=== PATIENT | male | born 1970 | race Caucasian/White ===

== ENCOUNTER 2018-03-14 00:19 | Observation (INO) | payer OTHER ==
[2018-03-14 00:59] LABS: Absolute Lymphocytes (CBC) 2.6 K/uL (0.7-4.9); Absolute Monocytes 0.9 K/uL (0.1-1.3); Absolute Neutrophil 4.1 K/uL (1.8-8.0); Basophils % 0.7 % (0-1.3); Hematocrit 40.2 % (39.6-49.0); Lymphocytes % 32.5 % (15.3-44.8); MCH 33.7 pg (27.0-35.0); MCV 94.2 fL (80-100); MPV 7.5 fL (7.6-11.3); Monocytes % 11.3 % (3.3-12.3); RBC Red Blood Cell Count 4.26 M/uL (4.33-5.43)
[2018-03-14 01:04] LABS: Protime INR 1.07
[2018-03-14] MEDS ORDERED: FENTANYL CITR 100 MCG/2 ML ONE (01:07)
[2018-03-14] MEDS ORDERED: NA CHLORIDE 0.9% 1,000 ML ONE (01:07)
[2018-03-14 01:16] LABS: ALT/SGPT 37 U/L (12-78); AST/SGOT 24 U/L (15-37); Albumin 3.6 g/dL (3.4-5.0); Alkaline Phosphatase 52 U/L (45-117); BUN Blood Urea Nitrogen 16 mg/dL (7-18); Bicarbonate 26 mmol/L (21-32); Bilirubin Direct < 0.1 mg/dL (0-0.2); Bilirubin Total 0.3 mg/dL (0.2-1.0); Glucose Level 123 mg/dL (74-106); Magnesium 1.9 mg/dL (1.8-2.4); NT PRO-BNP 46 pg/mL (<125); Potassium 3.5 mmol/L (3.5-5.1); Sodium Level 142 mmol/L (136-145); Troponin (Emerg Dept Use Only) < 0.02 ng/mL (0.0-0.045)
--- NOTE | 2018-03-14 02:21 | ER ---
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 Transition of care: patient was not received from another setting of care. Onset of symptoms was March 14, 2018 at 00:00. Risk Assessment: Do you want to hurt yourself or someone else? Patient reports no desire to harm self or others. Initial Sepsis Screen: Does the patient meet any 2 criteria? No. Patient's initial sepsis screen is negative. Does the patient have a suspected source of infection? No. Patient's initial sepsis screen is negative. Care prior to arrival: None. 00:30 Method Of Arrival: Wheelchair lp1 00:30 Acuity: MICHELA 2 lp1 Historical: - Allergies: 00:34 Morphine; lp1 00:34 Neurontin; lp1 - Home Meds: 00:34 aspirin 325 mg Oral TbEC 1 tab once daily [Active]; lisinopril 5 mg Oral tab 1 tab lp1 twice a day [Active]; metoprolol tartrate 25 mg Oral tab 1 tab once daily [Active]; pantoprazole 20 mg Oral TbEC once daily [Active]; Plavix 75 mg Oral tab 1 tab once daily [Active]; Lisinopril Oral [Active]; atorvastatin 40 mg oral tab nightly [Active]; - PMHx: 00:34 Depression; Hyperlipidemia; Hypertension; VA x6; GERD; lp1 - PSHx: 00:34 Cardiac stents x4; Cholecystectomy; Appendectomy; Hernia repair; lp1 - Immunization history:: Adult Immunizations up to date. - Social history:: Smoking status: Patient uses tobacco products, smokes one-half pack cigarettes per day. - Ebola Screening: : No symptoms or risks identified at this time. Screenin:35 Abuse screen: Denies threats or abuse. Denies injuries from another. Nutritional lp1 screening: No deficits noted. Tuberculosis screening: No symptoms or risk factors identified. Fall Risk None identified. Assessment: 00:47 General: Appears in no apparent distress. Behavior is calm, cooperative. Pain: Pain ak1 does not radiate. Pain began 1 hour ago. Neuro: No deficits noted. Cardiovascular: Reports chest pain, diaphoresis, nausea, Rhythm is regular. Respiratory: No deficits noted. GI: No signs and/or symptoms were reported involving the gastrointestinal system. : No signs and/or symptoms were reported regarding the genitourinary system. EENT: No signs and/or symptoms were reported regarding the EENT system. Derm: Skin is intact, Skin is dry, Skin temperature is warm. Musculoskeletal: No signs and/or symptoms reported regarding the musculoskeletal system. 01:29 Reassessment: Patient appears in no apparent distress at this time. pt c/o increased ak1 pain, ERP ordered more pain medication and CT. pt informed of new orders. family at bedside. pt resp even and unlabored. will continue to monitor. 01:40 Reassessment: pt going to CT. ak1 02:55 Reassessment: Patient appears in no apparent distress at this time. No changes from ak1 previously documented assessment. Patient states feeling better. Vital Signs: 00:34 BP 115 / 75; Pulse 80; Resp 20; Temp 97.6(O); Pulse Ox 99% on R/A; Weight 122.47 kg; lp1 Height 5 ft. 10 in. (177.80 cm); Pain 8/10; 00:49 BP 110 / 75 LA Sitting (auto/lg); Pulse 71; ak1 00:56 BP 107 / 53 RA Sitting (auto/lg); Pulse 84; ak1 01:30 BP 103 / 62; Pulse 68; Resp 18; Pulse Ox 98% on R/A; ak1 02:56 BP 109 / 65; Pulse 68; Resp 16; Temp 98; Pulse Ox 99% on R/A; ak1 00:34 Body Mass Index 38.74 (122.47 kg, 177.80 cm) lp1 ED Course: 00:21 Patient arrived in ED. es 00:22 Brandyn Mi MD is Attending Physician. rn 00:28 Irving Guallpa PA is PHCP. cp 00:31 Triage completed. lp1 00:34 Arm band placed on left wrist. lp1 00:34 EKG done, by ED staff, reviewed by Brandyn Mi MD. Patient maintains SpO2 saturation lp1 greater than 95% on room air. 00:35 Patient has correct armband on for positive identification. Bed in low position. lp1 court monitor on. Pulse ox on. NIBP on. 00:46 Valeria Ruiz RN is Primary Nurse. ak1 00:46 Initial lab(s) drawn, by ny, sent to lab. Inserted saline lock: 22 gauge in left hand, ak1 using aseptic technique. Blood collected. Inserted saline lock: 20 gauge in right forearm, using aseptic technique. ,using aseptic technique. placed by Don DEL REAL. 00:47 No provider procedures requiring assistance completed. ak1 00:54 X-ray completed. Portable x-ray completed in exam room. Patient tolerated procedure kw well. 00:55 XRAY Chest (1 view) In Process Unspecified. EDMS 01:[address] via stretcher. kw1 01:58 Inserted saline lock: 20 gauge in left antecubital area, using aseptic technique. ao 02:11 CT Chest Angio In Process Unspecified. EDMS 02:11 Radiology exam delayed due to IV insertion attempt and/or patient not having kw1 appropriate IV at this time. 02:11 CT completed. Patient tolerated procedure well. Patient moved back from CT. kw1 02:20 Radha Kinney MD is Hospitalizing Provider. cp 02:54 Patient admitted, IV remains in place. ak1 02:54 20g Right forearm IV DC'd due to pain per pt. ak1 Administered Medications: 01:00 Drug: NS 0.9% 500 ml Route: IV; Rate: bolus; Site: left hand; ak1 01:40 Follow up: IV Status: Completed infusion ak1 01:00 Drug: fentaNYL (PF) 25 mcg Route: IVP; Site: left hand; ak1 01:21 Follow up: Response: No adverse reaction ak1 01:29 Drug: fentaNYL (PF) 25 mcg Route: IVP; Site: left hand; ak1 01:39 Follow up: Response: No adverse reaction ak1 02:42 Drug: NS 0.9% 1000 ml Route: IV; Rate: 100 ml/hr; Site: left hand; ak1 02:42 Follow up: IV Status: Infusion continued upon admission ak1 Outcome: 02:20 Decision to Hospitalize by Provider. cp 02:54 Condition: stable ak1 02:54 Instructed on the need for admit. 03:34 Admitted to Tele accompanied by tech, family with patient, via wheelchair, room 210, ak1 with chart, Report called to Maria Elena 03:45 Patient left the ED. ak1 Signatures: Dispatcher [employer] Annalisa Salamanca Roman, MD MD rn Whitley, Kimberlee kw Pena, Laura RN RN lp1 Valeria Ruiz RN RN ak1 Irving Guallpa, Caleb Sandoval cp, RN RN Brittany Vazquez kw1
--- NOTE | 2018-03-14 02:21 | EDPHYS ---
Physician Documentation [facility] Name: Raad Merlos Age: 47 yrs Sex: Male : 1970 Arrival Date: 03/14/2018 Time: 00:21 Bed 4 Private MD: ED Physician Brandyn Mi HPI: 03/14 00:40 This 47 yrs old Male presents to ER via Wheelchair with complaints of Chest cp Pain. 00:40 The patient or guardian reports chest pain that is located primarily in the anterior cp chest wall. Onset: 1 hour(s) ago. The pain does not radiate. The chest pain is described as similar to previous "heart attack pain". Duration: The patient or guardian reports a single episode, that is still ongoing. Historical: - Allergies: 00:34 Morphine; lp1 00:34 Neurontin; lp1 - Home Meds: 00:34 aspirin 325 mg Oral TbEC 1 tab once daily [Active]; lisinopril 5 mg Oral tab 1 tab lp1 twice a day [Active]; metoprolol tartrate 25 mg Oral tab 1 tab once daily [Active]; pantoprazole 20 mg Oral TbEC once daily [Active]; Plavix 75 mg Oral tab 1 tab once daily [Active]; Lisinopril Oral [Active]; atorvastatin 40 mg oral tab nightly [Active]; - PMHx: 00:34 Depression; Hyperlipidemia; Hypertension; [place] x6; GERD; lp1 - PSHx: 00:34 Cardiac stents x4; Cholecystectomy; Appendectomy; Hernia repair; lp1 - Immunization history:: Adult Immunizations up to date. - Social history:: Smoking status: Patient uses tobacco products, smokes one-half pack cigarettes per day. - Ebola Screening: : No symptoms or risks identified at this time. ROS: 00:45 Constitutional: Negative for body aches, chills, fever, poor PO intake. cp 00:45 Eyes: Negative for injury, pain, redness, and discharge. cp Exam: 00:30 ECG was reviewed by the Attending Physician. cp 00:48 Constitutional: The patient appears in no acute distress, alert, awake, cp non-diaphoretic, non-toxic, well developed, well nourished, uncomfortable. 00:48 Head/Face: Normocephalic, atraumatic. Eyes: Pupils equal round and reactive to light, cp extra-ocular motions intact. Lids and lashes normal. Conjunctiva and sclera are non-icteric and not injected. Cornea within normal limits. Periorbital areas with no swelling, redness, or edema. ENT: Nares patent. No nasal discharge, no septal abnormalities noted. Tympanic membranes are normal and external auditory canals are clear. Oropharynx with no redness, swelling, or masses, exudates, or evidence of obstruction, uvula midline. Mucous membranes moist. Neck: Trachea midline, no thyromegaly or masses palpated, and no cervical lymphadenopathy. Supple, full range of motion without nuchal rigidity, or vertebral point tenderness. No Meningismus. Chest/axilla: Normal chest wall appearance and motion. Nontender with no deformity. No lesions are appreciated. 00:48 Cardiovascular: Rate: normal, Rhythm: regular, Pulses: Pulses are 2+ in right radial artery and left radial artery. Edema: is not appreciated, JVD: is not appreciated. 00:48 Respiratory: the patient does not display signs of respiratory distress, Respirations: normal, no use of accessory muscles, no retractions, no splinting, no tachypnea, labored breathing, is not present, Breath sounds: are clear throughout, no decreased breath sounds, no stridor, no wheezing. 00:48 Abdomen/GI: Inspection: obese Bowel sounds: active, all quadrants, Palpation: abdomen is soft and non-tender, in all quadrants. 00:48 Skin: cellulitis, is not appreciated, no rash present. 00:48 Neuro: Orientation: to person, place \\T\\ time. Mentation: lucid, able to follow commands, Cerebellar function: is grossly normal, Motor: moves all fours, strength is normal, Sensation: no obvious gross deficits. Vital Signs: 00:34 BP 115 / 75; Pulse 80; Resp 20; Temp 97.6(O); Pulse Ox 99% on R/A; Weight 122.47 kg; lp1 Height 5 ft. 10 in. (177.80 cm); Pain 8/10; 00:49 BP 110 / 75 LA Sitting (auto/lg); Pulse 71; ak1 00:56 BP 107 / 53 RA Sitting (auto/lg); Pulse 84; ak1 01:30 BP 103 / 62; Pulse 68; Resp 18; Pulse Ox 98% on R/A; ak1 02:56 BP 109 / 65; Pulse 68; Resp 16; Temp 98; Pulse Ox 99% on R/A; ak1 00:34 Body Mass Index 38.74 (122.47 kg, 177.80 cm) lp1 MDM: 00:22 Patient medically screened. rn 01:24 Data reviewed: vital signs, nurses notes, lab test result(s), EKG, radiologic studies, cp plain films, and as a result, I will admit patient. Physician consultation: Radha Kinney MD was called at 01:24, was contacted at 01:24, regarding admission, to the telemetry unit. patient's condition. 03/14 00:29 Order name: Basic Metabolic Panel; Complete Time: 01:18 cp 03/14 01:18 Interpretation: Normal except: CL 110; GLUC 123; GFR 71; CA 8.2. cp 03/14 00:29 Order name: CBC with Diff; Complete Time: 01:18 cp 03/14 01:18 Interpretation: Normal except: RBC 4.26; MPV 7.5. cp 03/14 00:29 Order name: LFT's; Complete Time: 01:18 cp 03/14 00:29 Order name: Magnesium; Complete Time: 01:18 cp 03/14 00:29 Order name: NT PRO-BNP; Complete Time: 01:18 cp 03/14 00:29 Order name: PT-INR; Complete Time: 01:18 cp 03/14 00:29 Order name: Troponin (emerg Dept Use Only); Complete Time: 01:18 cp 03/14 01:19 Interpretation: Within normal limits: TROPED < 0.02. 03/14 00:29 Order name: XRAY Chest (1 view) 03/14 01:23 Order name: CT Chest Angio 03/14 02:47 Order name: Urine Dipstick--Ancillary (enter results) 2 03/14 00:29 Order name: EKG; Complete Time: 00:30 cp 03/14 00:29 Order name: Cardiac monitoring; Complete Time: 00:48 cp 03/14 00:29 Order name: EKG - Nurse/Tech; Complete Time: 00:49 cp 03/14 00:29 Order name: IV Saline Lock; Complete Time: 00:49 cp 03/14 00:29 Order name: Labs collected and sent; Complete Time: 00:49 cp 03/14 00:29 Order name: O2 Per Protocol; Complete Time: 00:49 cp 03/14 00:29 Order name: O2 Sat Monitoring; Complete Time: 00:49 cp 03/14 00:29 Order name: Blood Pressure Recheck: bilateral upper extremities; Complete Time: 00:56 cp 03/14 02:24 Order name: CONS Physician Consult EDMS EC:30 Rate is 77 beats/min. Rhythm is regular. SC interval is normal. QRS interval is normal. cp QT interval is normal. T waves are Inverted in lead aVL. Interpreted by me. Reviewed by me. Administered Medications: 01:00 Drug: NS 0.9% 500 ml Route: IV; Rate: bolus; Site: left hand; ak1 01:40 Follow up: IV Status: Completed infusion ak1 01:00 Drug: fentaNYL (PF) 25 mcg Route: IVP; Site: left hand; ak1 01:21 Follow up: Response: No adverse reaction ak1 01:29 Drug: fentaNYL (PF) 25 mcg Route: IVP; Site: left hand; ak1 01:39 Follow up: Response: No adverse reaction ak1 02:42 Drug: NS 0.9% 1000 ml Route: IV; Rate: 100 ml/hr; Site: left hand; ak1 02:42 Follow up: IV Status: Infusion continued upon admission ak1 Disposition: 06:57 Co-signature as Attending Physician, Brandyn Mi MD. rn Disposition: 03/14/18 02:20 Hospitalization ordered by Radha Kinney for Observation. Preliminary diagnosis is Chest pain, unspecified. - Bed requested for Telemetry/MedSurg (observation). - Status is Observation. ak1 - Condition is Stable. - Problem is new. - Symptoms have improved. UTI on Admission? No Signatures: Dispatcher [employer] EDMS Brittany Greenwood RN RN kl Nieto, Roman, MD MD rn Pena, Laura, RN RN lp1 Valeria Ruiz RN RN ak1 Irving Guallpa PA PA cp Corrections: (The following items were deleted from the chart) 01:18 01:18 Normal except: CL 110; GLUC 123; GFR 71. cp cp 03:19 02:20 Hospitalization Ordered by Radha Kinney MD for Observation. Preliminary kl diagnosis is Chest pain, unspecified. Bed requested for Telemetry/MedSurg (observation). Status is Observation. Condition is Stable. Problem is new. Symptoms have improved. UTI on Admission? No. cp 03:21 03:19 03/14/2018 02:20 Hospitalization Ordered by Radha Kinney MD for Observation. kl Preliminary diagnosis is Chest pain, unspecified. Bed requested for Telemetry/MedSurg (observation). Status is Observation. Condition is Stable. Problem is new. Symptoms have improved. UTI on Admission? No. kl 03:45 03:21 03/14/2018 02:20 Hospitalization Ordered by Radha Kinney MD for Observation. ak1 Preliminary diagnosis is Chest pain, unspecified. Bed requested for Telemetry/MedSurg (observation). Status is Observation. Condition is Stable. Problem is new. Symptoms have improved. UTI on Admission? No. kl
[2018-03-14] MEDS ORDERED: KETOROLAC 30 MG/ML INJ IV PRN (02:31)
--- NOTE | 2018-03-14 02:40 | P.HP ---
Certification for Inpatient Patient admitted to: Observation With expected LOS: <2 Midnights Practitioner: I am a practitioner with admitting privileges, knowledge of patient current condition, hospital course, and medical plan of care. Services: Services provided to patient in accordance with Admission requirements found in Title 42 Section 412.3 of the Code of Federal Regulations Patient History Date of Service: 03/14/18 Reason for admission: Chest pain History of Present Illness: Mr. Merlos is a 47-year-old male with history of dyslipidemia, obesity, tobacco abuse, Coronary artery disease, he has had several OR, with previous catheterization and stenting in the LAD posterior branch of RCA. The patient was admitted last time in 09/05 due to unstable angina, he had a new cardiac catheterization showing patent stents without significant stenosis in the rest of the arteries. At this time, the patient present in ER complaining of typical chest pain starting 1 hr prior to arrive. He described the pressure like, located substernally, radiated to the back, associated with profuse diaphoresis, shortness of breath and nausea. He took nitro sublingual without relief. In ER lab work shows normal troponin I level, EKG without ST-T acute abnormality. CT a chest shows no sign of PE, awaiting formal radiologist report. Allergies gabapentin Allergy (Verified 09/19/14 15:39) UNKNOWN morphine Allergy (Verified 09/19/14 15:39) UNKNOWN Home medications list reviewed: Yes Home Medications: Aspirin [Ecotrin] 325 mg PO DAILY 03/06/13 Lisinopril [Prinivil*] 5 mg PO BID 03/06/13 Metoprolol Tartrate [Lopressor*] 25 mg PO BID 03/06/13 Fluoxetine HCl [Prozac] 40 mg PO DAILY 08/30/14 Clopidogrel Bisulfate [Plavix] 75 mg PO DAILY 06/30/16 Pantoprazole Sodium [Protonix] 20 mg PO BEDTIME 06/30/16 ALPRAZolam [Alprazolam] 0.5 mg PO BID PRN 08/24/17 Simvastatin 20 mg PO BEDTIME 08/24/17 Fenofibrate [Tricor*] 160 mg PO DAILY #30 tab 08/25/17 - Past Medical/Surgical History Diabetic: No -: MIx6 -: gangrenous gallbladder -: pnuemonia -: hyperlipedimia -: HTN -: depression -: appendicitis -: choly -: appy -: hernia rpair -: heart stentx4 - Family History Father -: Heart disease - Social History Smoking Status: Current every day smoker Counseled patient to stop smoking for: less than 10 minutes Smoking therapy provided: Yes Patient receptive to therapy: No Alcohol use: No CD- Drugs: No Caffeine use: Yes Place of Residence: Home Review of Systems 10-point ROS is otherwise unremarkable Physical Examination - Physical Exam General: Alert, In no apparent distress HEENT: Atraumatic, PERRLA, Mucous membr. moist/pink, EOMI, Sclerae nonicteric Neck: Supple, 2+ carotid pulse no bruit, No LAD, Without JVD or thyroid abnormality Respiratory: Clear to auscultation bilaterally, Normal air movement Cardiovascular: Regular rate/rhythm, Normal S1 S2 Gastrointestinal: Normal bowel sounds, No tenderness Musculoskeletal: No tenderness Integumentary: No rashes Neurological: Normal speech, Normal strength at 5/5 x4 extr, Normal tone, Normal affect Lymphatics: No axilla or inguinal lymphadenopathy - Studies Laboratory Data (last 24 hrs) 03/14/18 00:40: PT 12.6 H, INR 1.07 03/14/18 00:40: WBC 7.9, Hgb 14.4, Hct 40.2, Plt Count 192 03/14/18 00:40: Sodium 142, Potassium 3.5, BUN 16, Creatinine 1.10, Glucose 123 H, Magnesium 1.9, Total Bilirubin 0.3, AST 24, ALT 37, Alkaline Phosphatase 52 Assessment and Plan - Problems (Diagnosis) (1) CAD (coronary artery disease) Onset Date: 07/02/16 Current Visit: No Status: Acute Qualifiers: Coronary Disease-Associated Artery/Lesion type: [place] artery [place] vs. transplanted heart: [place] heart Associated angina: with unstable angina Qualified Code(s): I25.110 - Atherosclerotic heart disease of [place] coronary artery with unstable angina pectoris (2) Chest pain Onset Date: 11/30/14 Current Visit: No Status: Acute Qualifiers: Chest pain type: precordial pain Qualified Code(s): R07.2 - Precordial pain (3) Hyperlipidemia Onset Date: 07/02/16 Current Visit: No Status: Acute Qualifiers: Hyperlipidemia type: mixed hyperlipidemia Qualified Code(s): E78.2 - Mixed hyperlipidemia (4) Hypertension Onset Date: 07/02/16 Current Visit: No Status: Acute Qualifiers: Hypertension type: essential hypertension Qualified Code(s): I10 - Essential (primary) hypertension (5) Obese Onset Date: 08/25/17 Current Visit: No Status: Acute Qualifiers: Obesity type: unspecified obesity type Obesity classification: unspecified obesity classification Serious obesity comorbidity presence: unspecified whether serious comorbidity present Qualified Code(s): E66.9 - Obesity, unspecified (6) Tobacco abuse Onset Date: 08/31/14 Current Visit: No Status: Acute (7) Unstable angina Onset Date: 07/02/16 Current Visit: No Status: Acute - Plan The patient will be admitted to the hospital due to typical chest pain, will keep NPO for potential cardiac workup, order echo, resume beta-blockers, Plavix , aspirin, lisinopril, statins. Will order full dose of Lovenox. Consult Dr. Ocasio. - Advance Directives Does patient have a Living Will: No Does patient have a Durable POA for Healthcare: No - Code Status/Comfort Care Code Status Assessed: Yes Code Status: Full Code
[2018-03-14] MEDS ORDERED: ALPRAZOLAM 0.5 MG TABLET PO PRN (03:38)
[2018-03-14] MEDS ORDERED: NITROGLYCERIN 0.4 MG/TAB SL PRN (03:38)
[2018-03-14] MEDS ORDERED: ACETAMINOPHEN 500 MG TAB PO PRN (03:38)
[2018-03-14 03:55] VITALS: BMI 40.3
[2018-03-14 04:43] LABS: Urine Appearance CLEAR; Urine Bilirubin NEGATIVE (NEG); Urine Blood NEGATIVE (NEG); Urine Color YELLOW; Urine Glucose NEGATIVE (NEG); Urine Protein NEGATIVE (NEG); Urine Specific Gravity >=1.030 (1.005-1.030); Urine pH 7.5 (5.0-7.0)
[2018-03-14 05:23] LABS: Urine Microscopic Reflex NO UMIC
--- NOTE | 2018-03-14 07:36 | RAD REPORT ---
EXAM DESCRIPTION: CT - Chest Angio - 03/14/2018 5:08 am CLINICAL HISTORY: Chest pain, shortness of breath, history of cardiac disease with prior stenting A preliminary report was provided at the time of the study and reviewed prior to final report. COMPARISON: Portable chest March 14, CT chest July 2014 TECHNIQUE: Dynamically enhanced 3 mm thick images of the chest were obtained during administration o f approximately 150mL Isovue 370 IV contrast. Coronal and oblique MIP reconstruction images were gene rated and reviewed. Exam utilizes a protocol to evaluate the pulmonary arterial tree. All CT scans are performed using dose optimization technique as appropriate and may include automated exposure control or mA/KV adjustment according to patient size. FINDINGS: No pulmonary emboli are identified. The aorta as imaged shows no acute or suspicious finding. Coronary artery calcifications and stents e vident. Minimal aortic calcification. Left vertebral artery arises from the aortic arch has a normal variant. Heart size is prominent. No pericardial thickening or effusion. No mass or dense consolidation. Minimal airspace opacification seen in both posterior upper lobes and slightly more prominently in both lower lobes. Atelectasis is the favored diagnosis. Multiple infect ious and inflammatory processes can have a similar appearance. These are felt to be much less likely. No pleural effusion or pleural thickening. No mediastinal or hilar suspicious masses. No chest wall masses or abnormal axillary lymphadenopathy. IMPRESSION: No pulmonary emboli identified. Posterior lung field airspace opacification favored to be atelectasis over infection or edema.
--- NOTE | 2018-03-14 08:07 | EKG ---
Test Date: 2018-03-14 Test Time: 00:24:14 Academic Affairs Dean: DIMITRI MEASUREMENT RESULTS: Intervals: Rate: 77 CA: 184 QRSD: 86 QT: 406 QTc: 459 [place]: P: 25 CA: 184 QRS: 58 T: 69 INTERPRETIVE STATEMENTS: Sinus rhythm with occasional premature supraventricular complexes Abnormal ECG Compared to ECG 08/24/2017 17:14:29 supra ventricular premature complex(es) now present T-wave abnormality no longer present Electronically Signed On 03-14-18 08:06:32 CDT by Won Ocasio
--- NOTE | 2018-03-14 08:14 | RAD REPORT ---
EXAM DESCRIPTION: RAD - Chest Single View - 03/14/2018 1:00 am CLINICAL HISTORY: Chest pain COMPARISON: August 24 TECHNIQUE: AP portable chest image was obtained 0043 hours . FINDINGS: Lung volumes are low. No acute lung parenchymal process. Lung markings are stable. No fail ure or volume overload. Heart and vasculature are normal. No measurable pleural effusion and no pneum othorax. No gross bony abnormality seen. No acute aortic findings suspected. IMPRESSION: No acute cardiopulmonary process. No significant change from comparison.
[2018-03-14] MEDS ORDERED: METOPROLOL TAR 25 MG TAB PO SCH (09:00)
[2018-03-14] MEDS ORDERED: FENOFIBRATE 160 MG TAB PO SCH (09:00)
[2018-03-14] MEDS ORDERED: ASPIRIN EC 325 MG TABLET PO SCH (09:00)
[2018-03-14] MEDS ORDERED: CLOPIDOGREL 75 MG TABLET PO SCH (09:00)
[2018-03-14] MEDS ORDERED: LISINOPRIL 5 MG TAB PO SCH (09:00)
[2018-03-14] MEDS ORDERED: FLUOXETINE 20 MG CAP PO SCH (09:00)
[2018-03-14] MEDS ORDERED: REGADENOSON 0.4 MG/5 ML SYR IV ONE (09:18)
--- NOTE | 2018-03-14 12:05 | ECHO ---
HEIGHT: 5 ft 10 in WEIGHT: 280 lb 14.4 oz DATE OF STUDY: 03/14/[address]: 2-DIMENSIONAL: YES M.MODE: YES DOPPLER: YES COLOR FLOW: YES TDS: YES PORTABLE: NO DEFINITY: NO BUBBLE STUDY: NO DIAGNOSIS: CHEST PAIN CARDIAC HISTORY: CATHERIZATION: YES SURGERY: NO PROSTHETIC VALVE: NO PACEMAKER: NO MEASUREMENTS (cm) DIASTOLIC (NORMALS) SYSTOLIC (NORMALS) IVSd 1.2 (0.6-1.2) LA Diam 3.8 (1.9-4.0) LVEF 50% LVIDd 5.5 (3.5-5.7) LVIDs 4.1 (2.0-3.5) %FS 26% LVPWd 1.1 (0.6-1.2) Ao Diam 3.3 (2.0-3.7) 2 DIMENSIONAL ASSESSMENT: RIGHT ATRIUM: NORMAL LEFT ATRIUM: NORMAL RIGHT VENTRICLE: NORMAL LEFT VENTRICLE: NORMAL TRICUSPID VALVE: NORMAL MITRAL VALVE: NORMAL PULMONIC VALVE: NORMAL AORTIC VALVE: NORMAL PERICARDIAL EFFUSION: NONE AORTIC ROOT: NORMAL LEFT VENTRICULAR WALL MOTION: MILD ANTERIOR APICAL HYPOKINESIS. DOPPLER/COLOR FLOW: TRACE MITRAL REGURGITATION. COMMENTS: NORMAL LEFT VENTRICULAR EJECTION FRACTION WITH WALL MOTION ABNORMALITY. TRACE MITRAL REGURGITATION. TECHNOLOGIST: WOO MILLER RDCS
--- NOTE | 2018-03-14 12:14 | RAD REPORT ---
EXAM DESCRIPTION: [facility] - Rest Stress Cardiac Imaging - 03/14/2018 11:50 am CLINICAL HISTORY: Chest pain COMPARISON: November 2014 TECHNIQUE: The patient was administered 10.9 mCi of Tc 99m Sestamibi prior to resting SPECT imaging of the heart. The patient was then administered 31.4 mCi of Tc 99m Sestamibi following exercise or ph armacologic stress. Multiplanar SPECT images were reviewed. FINDINGS: The end diastolic volume is 205 ml, the end systolic volume is 123 ml, and the ejection fr action is 40 %. Ventricular volumes and ejection fraction are very similar to the 2015 study. No stress-induced ischemic areas are identifiable. Patient has a very large area of scarring that inv olves mostly lateral wall at the base and extends to the anterolateral wall at the apex. This scar pa ttern is not significantly different from 2015. IMPRESSION: No stress-induced ischemic change. Large anterolateral scar pattern similar to 2015. Abnormal end-diastolic volume of 205 milliliters with a below normal ejection fraction of 40%. These values are very similar to 2015.
--- NOTE | 2018-03-14 12:34 | TREADPHA ---
DX: CHEST PAIN Date of Study: 03/14/2018 Ht: 5 10 Wt: 280 lb 14.4 oz Consulting Physician: FÁTIMA MEDICATIONS: TYLENOL, XANAX, ECOTRIN, LIPITOR, TRICOR, PROZAC, PRINIVIL, PLAVIX HISTORY: 47 YEAR OLD MALE WITH COMPLAINTS OF CHEST PAIN. SMOKER PACK PER DAY. MEDICAL HISTORY: DEPRESSION, HYPERTENSION, HYPERLIPIDEMIA, MYOCARDIAL INFARCTION X 6, CARDIAC STENTS X 4. PHYSICIAL EXAMINATION: RESTING B.P.: 121/90 RESTING H.R.: 62 RESTING EKG: NORMAL PROTOCOL: LEXISCAN EXERCISE TIME: 3:30 B.P. AT PEAK STRESS: 134/92 IMPRESSION: LEXISCAN INJECTED, CARDIOLITE INJECTED PER PROTOCOL. SEE NUCLEAR MEDICINE REPORT. NO SUPRAVENTRICULAR TACHYCARDIA. NO VENTRICULAR TACHYCARDIA. NO PREMATURE VENTRICULAR COMPLEXES. CHEST PAIN 8/10 AFTER ADMINISTRATION. PAIN 2/10 IN RECOVERY. NONDIAGNOSTIC EXERCISE LEXISCAN STRESS.
[2018-03-14 12:42] VITALS: BP 113/66; TEMP 98
[2018-03-14 12:48] VITALS: O2SAT 97
--- NOTE | 2018-03-14 13:33 | CON ---
History Of Present Illness: Mr. Merlos is 47. He has a history of intracoronary stents. The last ti me we did a cardiac cath was November of this year. We found that all of his stents were widely patent. He has given up tobacco for a couple of years. He is doing much better job with diet and exercise. He was not having chest pain last night, but he got lightheaded and dizzy and sweaty for no apparent reason, it was about an hour after sexual intercourse. Since then, he has been feeling fine. He martin s been in the hospital where EKGs and enzymes are within normal limits. Physical Examination: Vital Signs: 5 feet 10, 280 pounds. HEENT: Normal. Lungs: Clear. Cardiac: Normal. Abdomen: Soft. Extremities: Normal. A CT angio of the chest is negative for pulmonary embolism or masses. I am going to recommend to do a pharmacologic nuclear stress test to see if he has worsening angina. MELISSA/KATRIN Voice ID: [id number] Report ID: [id number]
[2018-03-14] MEDS ORDERED: ATORVASTATIN 10 MG TAB PO SCH (21:00)
[2018-03-14] MEDS ORDERED: PANTOPRAZOLE 40MG TABLET PO SCH (21:00)
== END 2018-03-14 13:14 | disposition home or self-care (01) ==
LOC: ER 00:19 → ERHOLD 02:22 → 2ND 03:31
PROVIDERS: ADMIT Internal Medicine; ATTEND Internal Medicine
DX: R07.9 Chest pain, unspecified (principal); I25.10 Atherosclerotic heart disease of native coronary artery without angina pectoris; I25.2 Old myocardial infarction; E78.5 Hyperlipidemia, unspecified; I10 Essential (primary) hypertension; E66.9 Obesity, unspecified; F17.210 Nicotine dependence, cigarettes, uncomplicated; Z88.6 Allergy status to analgesic agent; Z68.41 Body mass index [BMI] 40.0-44.9, adult; Z95.5 Presence of coronary angioplasty implant and graft
CPT/HCPCS: 36415; 71045; 71275; 78452; 80048; 80061; 80076; 81003; 83735; 83880; 84484; 85025; 85610; 93005; 93017; 93306; 94760; 96361; 96374; 99285; A9500; G0378; J1650; J2785; J3010; J7030; Q9967